=== PATIENT | female | born 1955 | race Caucasian/White ===

== ENCOUNTER → 2022-01-19 | Day surgery (SDC) | payer MEDICARE, OTHER ==
[~2022-01-19] VITALS: Ht 152.4 cm; Wt 77.1 kg
[~2022-01-19] MED LIST: DITROPAN5 MG PO; FIBER500 MG PO; LIPITOR20 MG PO; PRILOSEC20 MG PO; SINGULAIR10 MG PO; VITAMIN B-121000 MC1 PO; VITAMIN D CALCIUM PO; ZOLOFT100 MG PO
== END | disposition home or self-care (01) ==
LOC: FAS 11:20
DX: Z12.11 Encounter for screening for malignant neoplasm of colon (principal); K63.5 Polyp of colon; K57.30 Diverticulosis of large intestine without perforation or abscess without bleeding; K64.8 Other hemorrhoids; K64.4 Residual hemorrhoidal skin tags; E78.00 Pure hypercholesterolemia, unspecified; F41.9 Anxiety disorder, unspecified; Z79.899 Other long term (current) drug therapy
CPT/HCPCS: J1610; J2704; J7120